=== PATIENT | female | born 1995 | race Caucasian/White ===

== ENCOUNTER 2017-11-07 08:34 | Day surgery (SDC) | payer OTHER ==
[~2017-11-07 08:34] MED LIST: LIDOCAINE 2% (SDV) 5 ML INJ
[2017-11-07] MEDS ORDERED: CEFAZOLIN 2 GM/50 ML (PMX) 50 ML IVPB (09:00)
[2017-11-07] MEDS ORDERED: SOD CHLORIDE 0.9% 1,000 ML IV (10:00)
[2017-11-07 13:26] LABS: ADD MAN DIFF? NO
[2017-11-07 13:28] LABS: BASOPHILS % 0.1 % (0.0-2.0); EOSINOPHILS % 0.4 % (0.0-7.0); HEMATOCRIT 38.5 % (37.0-47.0); HEMOGLOBIN 12.8 g/dl (12.0-16.0); LYMPHOCYTES # 3.9 10^3/ul (0.8-2.9); LYMPHOCYTES % 35.8 % (15.0-51.0); MEAN CORPUSCULAR HEMOGLOBIN 28.2 pg (29.0-33.0); MEAN CORPUSCULAR HGB CONC 33.2 g/dl (32.0-37.0); MEAN CORPUSCULAR VOLUME 84.8 fl (82.0-101.0); MEAN PLATELET VOLUME 9.7 fl (7.4-10.4); MONOCYTE # 0.5 10^3/ul (0.3-0.9); MONOCYTES % 4.6 % (0.0-11.0); NEUTROPHIL # 6.5 10^3/ul (1.6-7.5); NEUTROPHILS % 58.9 % (39.0-77.0); PLATELET COUNT 298 10^3/UL (140-415); RED BLOOD COUNT 4.54 10^6/ul (4.20-5.40); RED CELL DISTRIBUTION WIDTH 13.6 % (11.5-14.5)
[2017-11-07] MEDS ORDERED: FENTAnyl 50 MCG/ML VIAL (13:29)
[2017-11-07] MEDS ORDERED: SUCCINYLCHOLINE CHLORIDE 100 MG/5 ML SYG IV (13:32)
[2017-11-07 13:45] LABS: ALANINE AMINOTRANSFERASE 31 IU/L (13-69); ALBUMIN/GLOBULIN RATIO 1.33; ALKALINE PHOSPHATASE 80 IU/L (42-121); ANION GAP 11 (8-16); ASPARTATE AMINO TRANSFERASE 22 IU/L (15-46); BILIRUBIN,INDIRECT 0.3 mg/dl (0-1.1); BILIRUBIN,TOTAL 0.3 mg/dl (0.2-1.3); CARBON DIOXIDE 27 mmol/L (21-31); CHLORIDE 108 mmol/L (97-110); GLUCOSE 96 mg/dl (70-220)
[2017-11-07 13:46] LABS: BLOOD UREA NITROGEN 11 mg/dl (7-20); CALCIUM 8.8 mg/dl (8.4-10.2); CREATININE 0.58 mg/dl (0.44-1.00); SODIUM 142 mmol/L (135-144)
[2017-11-07 13:48] LABS: INR 0.93; PROTIME 12.5 Sec (11.9-14.9)
[2017-11-07] MEDS: BUPIVACAINE 0.25%/EPI (SDV) 30 ML INJ INJ (13:56)
[2017-11-07] MEDS ORDERED: FENTAnyl 50 MCG/ML VIAL IV ×2 (14:00)
[2017-11-07] MEDS ORDERED: HYDROmorphONE (0.2 MG/ML) 10ML SYG IV ×2 (14:00)
[2017-11-07] MEDS ORDERED: METOCLOPRAMIDE 10 MG INJ IV (14:00)
[2017-11-07] MEDS ORDERED: PROPOFOL 20 ML (14:02)
[2017-11-07] MEDS ORDERED: ROPIVACAINE 0.5 % 30 ML VIAL (14:02)
[2017-11-07] MEDS ORDERED: SUGAMMADEX SODIUM 200 MG/2 ML VIAL IV (14:02)
[2017-11-07] MEDS ORDERED: ROCURONIUM 50 MG INJ (14:02)
[2017-11-07] MEDS ORDERED: CEFAZOLIN 1 GM INJ (14:02)
[2017-11-07] MEDS ORDERED: HYDROCODONE/APAP (5/325) TAB PO (15:00)
[2017-11-07] MEDS ORDERED: morphine 2 MG INJ IV (15:00)
[2017-11-07] MEDS ORDERED: IBUPROFEN 600 MG TAB PO (15:00)
[2017-11-07] MEDS ORDERED: KETOROLAC 30 MG INJ IV (15:00)
[2017-11-07] MEDS ORDERED: ONDANSETRON 4 MG INJ IV (15:00)
[2017-11-07] MEDS: FENTAnyl 50 MCG/ML VIAL IV ×4 (15:09→15:26)
[2017-11-07] MEDS: MEPERIDINE 25 MG INJ IV (15:15)
[2017-11-07] MEDS: DIPHENHYDRAMINE 50 MG INJ IV (15:23)
[2017-11-07] MEDS: HYDROmorphONE (0.2 MG/ML) 10ML SYG IV (15:41)
[2017-11-07] MEDS: HYDROCODONE/APAP (5/325) TAB PO (15:52)
[2017-11-07] MEDS: ONDANSETRON 4 MG INJ IV (16:04)
== END 2017-11-07 17:34 | disposition home or self-care (01) ==
LOC: SDS 08:34
DX: K80.10 Calculus of gallbladder with chronic cholecystitis without obstruction (principal); J45.909 Unspecified asthma, uncomplicated
CPT/HCPCS: 47562; 80053; 85025; 85610; 85730; 88304